=== PATIENT | male | born 1960 | race Hispanic/Latino ===

== ENCOUNTER 2020-10-13 18:44 | Inpatient (IN) | payer MEDICARE, OTHER ==
[~2020-10-13] VITALS: Ht 165.1 cm; Wt 102.6 kg
[~2020-10-13 18:44] MED LIST: AMIODARONE 150MG VIAL IV ONE; CACL 1GM SYG IVP ONE; EPINEPHRINE 1MG SYG 10ML IVP ONE; LIDOCAINE PF 100MG/5ML (2%) SYRINGE 5ML IVP ONE; MAGNESIUM SULFATE 1 GM/2 ML VIAL IM ONE; SODIUM BICARB 8.4% 50ML SYRINGE IVP ONE
[2020-10-13 18:53] VITALS: BP 151/91
[2020-10-13 19:04] LABS: ABG BASE EXCESS -0.8 mmol/L (-2.0-3.0); ABG HCO3 20.1 mmol/L (21.0-28.0); ABG OXYGEN SATURATION 75.3 % (95.0-99.0); ABG PCO2 25 mmHg (35-48)
[2020-10-13 19:09] LABS: HEMATOCRIT 43.7 % (42-54); LYMPHOCYTES % (AUTO) 9.9 % (21.0-51.0); MEAN CORPUSCULAR HEMOGLOBIN 30.4 pg (27.0-33.0); MEAN CORPUSCULAR VOLUME 86.9 fL (79-99); MONOCYTES % (AUTO) 5.5 % (3.0-13.0); NEUTROPHILS % (AUTO) 84.1 % (40.0-77.0); PLATELET COUNT (AUTO) 88 K/uL (130-400); RED BLOOD CELL COUNT(AUTO) 5.03 MIL/uL (4.50-6.20); RED CELL DISTRIBUTION WIDTH 12.3 % (11.0-15.5); WHITE BLOOD COUNT (AUTO) 7.7 K/uL (4.8-10.8)
[2020-10-13 19:20] VITALS: BP 113/68
[2020-10-13 19:24] LABS: CREATININE 1.4 mg/dL (0.5-1.5); POTASSIUM 3.6 mmol/L (3.5-5.1)
[2020-10-13 19:29] LABS: ALBUMIN 3.1 g/dL (3.5-5.0); BILIRUBIN,TOTAL 1.2 mg/dL (0.2-1.0); TOTAL PROTEIN, SERUM 7.4 g/dL (6.0-8.3)
[2020-10-13 19:33] LABS: B-TYPE NATRIURETIC PEPTIDE 56 pg/mL (0-100)
[2020-10-13] MEDS ORDERED: ALBUTEROL INHALER 90MCG/INH IH PRN (20:30)
[2020-10-13] MEDS ORDERED: NITROGLYCERIN 1GM OINT 1 INCH/1GM TD ONE (20:30)
[2020-10-13] MEDS ORDERED: ACETAMINOPHEN 500 MG TABLET PO ONE (20:30)
[2020-10-13] MEDS ORDERED: ASPIRIN 325MG TAB PO ONE (20:30)
[2020-10-13] MEDS: NITROGLYCERIN 1GM OINT 1 INCH/1GM TD SCH (21:00)
[2020-10-13] MEDS ORDERED: DEXAMETHASONE SOD PHOSPHATE 4 MG/ML 1ML VIAL IVP SCH (21:00)
[2020-10-13] MEDS ORDERED: 0.9%NACL 1000ML 500 ML IV SCH (21:00)
[2020-10-13] MEDS ORDERED: ERGOCALCIFEROL (VITAMIN D2) 50,000 UNIT CAPSULE PO ONE (21:00)
[2020-10-13] MEDS ORDERED: PHARMACY COMMUNICATION**REMDESIVIR MISC SCH (21:00)
[2020-10-13] MEDS: ZOSYN 3.375GM+NS 50ML 50 ML IV SCH (21:55)
[2020-10-13] MEDS: INSULIN HUMULIN R 100 UNIT/ML 3ML SQ SCH (22:01)
[2020-10-13 22:20] VITALS: BP 109/69
[2020-10-14] VITALS (11 sets, daily range): BP systolic 109–166; BP diastolic 67–95
[2020-10-14] MEDS: ALBUTEROL INHALER 90MCG/INH IH SCH ×4 (02:56→20:28)
[2020-10-14] MEDS ORDERED: ALBUTEROL INHALER 90MCG/INH IH ONE (02:57)
[2020-10-14 05:27] LABS: ABG BASE EXCESS -1.4 mmol/L (-2.0-3.0); ABG OXYGEN SATURATION 93.4 % (95.0-99.0); ABG PCO2 29 mmHg (35-48)
[2020-10-14] MEDS: ZOSYN 3.375GM+NS 50ML 50 ML IV SCH ×3 (05:36→20:14)
[2020-10-14] MEDS: NITROGLYCERIN 1GM OINT 1 INCH/1GM TD SCH ×3 (05:36→20:13)
[2020-10-14 06:18] LABS: BASOPHILS % (AUTO) 0.1 % (0.0-5.0); HEMATOCRIT 42.8 % (42-54); LYMPHOCYTES % (AUTO) 8.4 % (21.0-51.0); MEAN CORPUSCULAR HGB CONC 33.4 g/dL (32.0-36.0); MEAN CORPUSCULAR VOLUME 89.9 fL (79-99); MONOCYTES % (AUTO) 4.3 % (3.0-13.0); NEUTROPHILS % (AUTO) 86.6 % (40.0-77.0); PLATELET COUNT (AUTO) 80 K/uL (130-400); RED BLOOD CELL COUNT(AUTO) 4.76 MIL/uL (4.50-6.20); RED CELL DISTRIBUTION WIDTH 12.4 % (11.0-15.5)
[2020-10-14] MEDS ORDERED: COMPOUND IV REFRIGERATED 1 EACH IVSOLN MISC PRN (06:30)
[2020-10-14 06:40] LABS: ALBUMIN 2.8 g/dL (3.5-5.0); BILIRUBIN,TOTAL 1.1 mg/dL (0.2-1.0); CREATININE 1.4 mg/dL (0.5-1.5); CRP QUANTITATIVE 145.6 mg/L (0.00-9.0); POTASSIUM 4.2 mmol/L (3.5-5.1); TOTAL PROTEIN, SERUM 6.8 g/dL (6.0-8.3)
[2020-10-14] MEDS ORDERED: REMDESIVIR (EUA) 520 200 MG in 0.9% NACL 250ML 250 ML IV SCH (07:00)
[2020-10-14] MEDS: INSULIN HUMULIN R 100 UNIT/ML 3ML SQ SCH ×4 (07:30→21:00)
[2020-10-14] MEDS ORDERED: FAMOTIDINE 20MG TAB PO SCH (09:00)
[2020-10-14] MEDS ORDERED: ENOXAPARIN SODIUM 40 MG/0.4 ML SYRINGE SQ SCH (09:00)
[2020-10-14] MEDS: ASCORBIC ACID 500 MG TAB PO SCH (09:35)
[2020-10-14] MEDS: ZINC SULFATE 220 CAPSULE PO SCH (09:35)
[2020-10-14] MEDS: ASPIRIN 81 MG EC TAB PO SCH (09:35)
[2020-10-14] MEDS: ENOXAPARIN SODIUM 40 MG/0.4 ML SYRINGE SQ SCH ×2 (09:36→20:14)
[2020-10-14] MEDS ORDERED: ATOR40TA71 PO (09:38)
[2020-10-14] MEDS ORDERED: CLOP75TA32 PO (09:39)
[2020-10-14] MEDS ORDERED: LOSA100T58 PO (09:40)
[2020-10-14] MEDS ORDERED: METO25TA6 PO (09:41)
[2020-10-14] MEDS: SOLU-MEDROL 40MG VIAL IVP SCH ×2 (12:31→20:12)
[2020-10-14] MEDS: BARICITINIB (EUA) 2 MG TABLET PO SCH (20:16)
[2020-10-14] MEDS ORDERED: DEXAMETHASONE SOD PHOSPHATE 4 MG/ML 1ML VIAL IVP SCH (21:00)
[2020-10-15 04:26] LABS: ABG BASE EXCESS -0.5 mmol/L (-2.0-3.0); ABG HCO3 22.5 mmol/L (21.0-28.0); ABG PCO2 33 mmHg (35-48)
[2020-10-15 05:41] VITALS: BP 156/93
[2020-10-15] MEDS: ZOSYN 3.375GM+NS 50ML 50 ML IV SCH (05:45)
[2020-10-15] MEDS: SOLU-MEDROL 40MG VIAL IVP SCH ×3 (05:46→18:09)
[2020-10-15] MEDS: NITROGLYCERIN 1GM OINT 1 INCH/1GM TD SCH ×3 (05:46→20:49)
[2020-10-15 06:02] LABS: HEMATOCRIT 39.8 % (42-54); LYMPHOCYTES % (AUTO) 6.5 % (21.0-51.0); MEAN CORPUSCULAR HEMOGLOBIN 30.1 pg (27.0-33.0); MEAN CORPUSCULAR HGB CONC 34.4 g/dL (32.0-36.0); MEAN CORPUSCULAR VOLUME 87.5 fL (79-99); MONOCYTES % (AUTO) 4.1 % (3.0-13.0); NEUTROPHILS % (AUTO) 88.3 % (40.0-77.0); PLATELET COUNT (AUTO) 107 K/uL (130-400); RED BLOOD CELL COUNT(AUTO) 4.55 MIL/uL (4.50-6.20); RED CELL DISTRIBUTION WIDTH 12.3 % (11.0-15.5); WHITE BLOOD COUNT (AUTO) 9.3 K/uL (4.8-10.8)
[2020-10-15] MEDS: INSULIN HUMULIN R 100 UNIT/ML 3ML SQ SCH ×4 (06:03→21:05)
[2020-10-15 06:10] LABS: HEMOGLOBIN A1C 6.6 % (4.0-6.0)
[2020-10-15 06:25] LABS: ALBUMIN 2.6 g/dL (3.5-5.0); BILIRUBIN,TOTAL 0.9 mg/dL (0.2-1.0); CREATININE 1.1 mg/dL (0.5-1.5); CRP QUANTITATIVE 101.4 mg/L (0.00-9.0); POTASSIUM 3.8 mmol/L (3.5-5.1); TOTAL PROTEIN, SERUM 6.5 g/dL (6.0-8.3)
[2020-10-15 08:00] VITALS: BP 144/88
[2020-10-15] MEDS: ALBUTEROL INHALER 90MCG/INH IH SCH ×4 (08:30→20:49)
[2020-10-15] MEDS: PANTOPRAZOLE 40 MG TAB DR PO SCH (08:45)
[2020-10-15] MEDS: ENOXAPARIN SODIUM 40 MG/0.4 ML SYRINGE SQ SCH ×2 (08:45→20:49)
[2020-10-15] MEDS: ZINC SULFATE 220 CAPSULE PO SCH (08:45)
[2020-10-15] MEDS: BARICITINIB (EUA) 2 MG TABLET PO SCH (08:45)
[2020-10-15] MEDS: ASPIRIN 81 MG EC TAB PO SCH (08:45)
[2020-10-15] MEDS: ASCORBIC ACID 500 MG TAB PO SCH (08:45)
[2020-10-15] MEDS: CLOPIDOGREL 75MG TAB PO SCH (08:46)
[2020-10-15] MEDS ORDERED: LOSARTAN 50 MG TABLET PO SCH (10:30)
[2020-10-15] MEDS: LOSARTAN 50 MG TABLET PO SCH (11:22)
[2020-10-15 12:00] VITALS: BP 133/71
[2020-10-15] MEDS: REMDESIVIR (EUA) 520 100 MG in 0.9% NACL 250ML 250 ML IV SCH (13:25)
[2020-10-15 16:00] VITALS: BP 109/74
[2020-10-15 20:00] VITALS: BP 111/51
[2020-10-15 20:16] LABS: BASOPHILS % (AUTO) 0.2 % (0.0-5.0); EOSINOPHILS % (AUTO) 0.2 % (0.0-8.0); HEMATOCRIT 42.3 % (42-54); LYMPHOCYTES % (AUTO) 6.2 % (21.0-51.0); MEAN CORPUSCULAR HEMOGLOBIN 30.7 pg (27.0-33.0); MEAN CORPUSCULAR VOLUME 90.2 fL (79-99); MONOCYTES % (AUTO) 5.3 % (3.0-13.0); NEUTROPHILS % (AUTO) 87.2 % (40.0-77.0); NUCLEATED RED BLOOD CELLS 0.2 % (0.0-0.19); PLATELET COUNT (AUTO) 159 K/uL (130-400); RED BLOOD CELL COUNT(AUTO) 4.69 MIL/uL (4.50-6.20); RED CELL DISTRIBUTION WIDTH 12.4 % (11.0-15.5); WHITE BLOOD COUNT (AUTO) 12.7 K/uL (4.8-10.8)
[2020-10-15] MEDS: METOPROLOL TARTRATE 25 MG TAB PO SCH (20:48)
[2020-10-16] VITALS (7 sets, daily range): BP systolic 113–155; BP diastolic 48–79
[2020-10-16] MEDS: ALBUTEROL INHALER 90MCG/INH IH SCH ×4 (02:22→21:06)
[2020-10-16] MEDS: NITROGLYCERIN 1GM OINT 1 INCH/1GM TD SCH ×3 (04:57→21:05)
[2020-10-16 05:28] LABS: BASOPHILS % (AUTO) 0.1 % (0.0-5.0); EOSINOPHILS % (AUTO) 0.1 % (0.0-8.0); HEMATOCRIT 42.6 % (42-54); LYMPHOCYTES % (AUTO) 5.2 % (21.0-51.0); MEAN CORPUSCULAR HGB CONC 33.6 g/dL (32.0-36.0); MEAN CORPUSCULAR VOLUME 89.5 fL (79-99); MONOCYTES % (AUTO) 5.9 % (3.0-13.0); NEUTROPHILS % (AUTO) 87.8 % (40.0-77.0); NUCLEATED RED BLOOD CELLS 0.1 % (0.0-0.19); PLATELET COUNT (AUTO) 186 K/uL (130-400); RED BLOOD CELL COUNT(AUTO) 4.76 MIL/uL (4.50-6.20); RED CELL DISTRIBUTION WIDTH 12.4 % (11.0-15.5); WHITE BLOOD COUNT (AUTO) 13.8 K/uL (4.8-10.8)
[2020-10-16] MEDS: REMDESIVIR LABS MISC SCH (06:00)
[2020-10-16 06:02] LABS: ALBUMIN 2.9 g/dL (3.5-5.0); BILIRUBIN,TOTAL 1.2 mg/dL (0.2-1.0); CREATININE 1.3 mg/dL (0.5-1.5); CRP QUANTITATIVE 54.4 mg/L (0.00-9.0); POTASSIUM 3.5 mmol/L (3.5-5.1); TOTAL PROTEIN, SERUM 7.2 g/dL (6.0-8.3)
[2020-10-16] MEDS: INSULIN HUMULIN R 100 UNIT/ML 3ML SQ SCH ×4 (06:37→21:08)
[2020-10-16] MEDS ORDERED: DEXAMETHASONE SOD PHOSPHATE 4 MG/ML 1ML VIAL IVP SCH (09:00)
[2020-10-16] MEDS: ASCORBIC ACID 500 MG TAB PO SCH (09:04)
[2020-10-16] MEDS: PANTOPRAZOLE 40 MG TAB DR PO SCH (09:04)
[2020-10-16] MEDS: ENOXAPARIN SODIUM 40 MG/0.4 ML SYRINGE SQ SCH (09:05)
[2020-10-16] MEDS: CLOPIDOGREL 75MG TAB PO SCH (09:05)
[2020-10-16] MEDS: LOSARTAN 50 MG TABLET PO SCH (09:05)
[2020-10-16] MEDS: ASPIRIN 81 MG EC TAB PO SCH (09:05)
[2020-10-16] MEDS: METOPROLOL TARTRATE 25 MG TAB PO SCH ×2 (09:05→21:05)
[2020-10-16] MEDS: ZINC SULFATE 220 CAPSULE PO SCH (09:05)
[2020-10-16] MEDS: BARICITINIB (EUA) 2 MG TABLET PO SCH (09:06)
[2020-10-16] MEDS: REMDESIVIR (EUA) 520 100 MG in 0.9% NACL 250ML 250 ML IV SCH (13:55)
[2020-10-16] MEDS ORDERED: LORAZEPAM 0.5 MG TABLET PO STA (17:33)
[2020-10-16] MEDS: DEXAMETHASONE SOD PHOSPHATE 4 MG/ML 1ML VIAL IVP SCH ×2 (17:42→21:05)
[2020-10-16 20:49] LABS: BASOPHILS % (AUTO) 0.3 % (0.0-5.0); EOSINOPHILS % (AUTO) 0.4 % (0.0-8.0); HEMATOCRIT 41.2 % (42-54); LYMPHOCYTES % (AUTO) 6.3 % (21.0-51.0); MEAN CORPUSCULAR HEMOGLOBIN 30.1 pg (27.0-33.0); MEAN CORPUSCULAR HGB CONC 33.5 g/dL (32.0-36.0); MONOCYTES % (AUTO) 5.8 % (3.0-13.0); NEUTROPHILS % (AUTO) 85.9 % (40.0-77.0); PLATELET COUNT (AUTO) 186 K/uL (130-400); RED BLOOD CELL COUNT(AUTO) 4.58 MIL/uL (4.50-6.20); RED CELL DISTRIBUTION WIDTH 12.5 % (11.0-15.5); WHITE BLOOD COUNT (AUTO) 12.5 K/uL (4.8-10.8)
[2020-10-16] MEDS: ENOXAPARIN SODIUM 60 MG/0.6 ML SQ SCH (21:07)
[2020-10-17] MEDS: ALBUTEROL INHALER 90MCG/INH IH SCH ×4 (01:29→20:31)
[2020-10-17 01:44] LABS: ABG BASE EXCESS 0.9 mmol/L (-2.0-3.0); ABG HCO3 20.2 mmol/L (21.0-28.0); ABG OXYGEN SATURATION 92.9 % (95.0-99.0); ABG PCO2 21 mmHg (35-48)
[2020-10-17 03:46] VITALS: BP 141/61
[2020-10-17] MEDS: NITROGLYCERIN 1GM OINT 1 INCH/1GM TD SCH ×3 (04:57→20:30)
[2020-10-17 05:03] LABS: BASOPHILS % (AUTO) 0.2 % (0.0-5.0); EOSINOPHILS % (AUTO) 0.1 % (0.0-8.0); HEMATOCRIT 41.7 % (42-54); LYMPHOCYTES % (AUTO) 5.1 % (21.0-51.0); MEAN CORPUSCULAR HEMOGLOBIN 30.3 pg (27.0-33.0); MEAN CORPUSCULAR HGB CONC 34.1 g/dL (32.0-36.0); MEAN CORPUSCULAR VOLUME 89.1 fL (79-99); NEUTROPHILS % (AUTO) 86.5 % (40.0-77.0); NUCLEATED RED BLOOD CELLS 0.1 % (0.0-0.19); PLATELET COUNT (AUTO) 219 K/uL (130-400); RED BLOOD CELL COUNT(AUTO) 4.68 MIL/uL (4.50-6.20); RED CELL DISTRIBUTION WIDTH 12.4 % (11.0-15.5); WHITE BLOOD COUNT (AUTO) 15.3 K/uL (4.8-10.8)
[2020-10-17 05:20] LABS: ALBUMIN 3.1 g/dL (3.5-5.0); BILIRUBIN,TOTAL 1.4 mg/dL (0.2-1.0); CREATININE 1.2 mg/dL (0.5-1.5); CRP QUANTITATIVE 34.9 mg/L (0.00-9.0); POTASSIUM 3.6 mmol/L (3.5-5.1); TOTAL PROTEIN, SERUM 7.1 g/dL (6.0-8.3)
[2020-10-17] MEDS: REMDESIVIR LABS MISC SCH (05:47)
[2020-10-17] MEDS: INSULIN HUMULIN R 100 UNIT/ML 3ML SQ SCH ×4 (06:24→20:31)
[2020-10-17 08:22] VITALS: BP 153/94
[2020-10-17] MEDS: DEXAMETHASONE SOD PHOSPHATE 4 MG/ML 1ML VIAL IVP SCH ×2 (08:35→20:32)
[2020-10-17] MEDS: ZINC SULFATE 220 CAPSULE PO SCH (09:17)
[2020-10-17] MEDS: BARICITINIB (EUA) 2 MG TABLET PO SCH (09:17)
[2020-10-17] MEDS: ENOXAPARIN SODIUM 60 MG/0.6 ML SQ SCH ×2 (09:17→20:32)
[2020-10-17] MEDS: PANTOPRAZOLE 40 MG TAB DR PO SCH (09:18)
[2020-10-17] MEDS: LOSARTAN 50 MG TABLET PO SCH (09:18)
[2020-10-17] MEDS: CLOPIDOGREL 75MG TAB PO SCH (09:18)
[2020-10-17] MEDS: METOPROLOL TARTRATE 25 MG TAB PO SCH ×2 (09:18→20:32)
[2020-10-17] MEDS: ASPIRIN 81 MG EC TAB PO SCH (09:18)
[2020-10-17] MEDS: ASCORBIC ACID 500 MG TAB PO SCH (09:18)
[2020-10-17 11:46] VITALS: BP 122/50
[2020-10-17] MEDS: REMDESIVIR (EUA) 520 100 MG in 0.9% NACL 250ML 250 ML IV SCH (13:45)
[2020-10-17 16:01] VITALS: BP 149/71
[2020-10-17 19:20] VITALS: BP 130/79
[2020-10-17 23:31] VITALS: BP 161/86
[2020-10-18] MEDS: ALBUTEROL INHALER 90MCG/INH IH SCH ×4 (00:34→20:13)
[2020-10-18 03:40] VITALS: BP 138/96
[2020-10-18] MEDS: NITROGLYCERIN 1GM OINT 1 INCH/1GM TD SCH ×3 (04:12→20:12)
[2020-10-18 05:00] LABS: BASOPHILS % (AUTO) 0.3 % (0.0-5.0); HEMATOCRIT 43.7 % (42-54); LYMPHOCYTES % (AUTO) 3.9 % (21.0-51.0); MEAN CORPUSCULAR HEMOGLOBIN 29.9 pg (27.0-33.0); MEAN CORPUSCULAR HGB CONC 33.4 g/dL (32.0-36.0); MEAN CORPUSCULAR VOLUME 89.4 fL (79-99); MONOCYTES % (AUTO) 3.2 % (3.0-13.0); NUCLEATED RED BLOOD CELLS 0.3 % (0.0-0.19); PLATELET COUNT (AUTO) 237 K/uL (130-400); RED BLOOD CELL COUNT(AUTO) 4.89 MIL/uL (4.50-6.20); RED CELL DISTRIBUTION WIDTH 12.4 % (11.0-15.5); WHITE BLOOD COUNT (AUTO) 15.7 K/uL (4.8-10.8)
[2020-10-18 05:29] LABS: ALBUMIN 2.9 g/dL (3.5-5.0); BILIRUBIN,TOTAL 1.4 mg/dL (0.2-1.0); CREATININE 1.1 mg/dL (0.5-1.5); CRP QUANTITATIVE 34.6 mg/L (0.00-9.0); POTASSIUM 3.6 mmol/L (3.5-5.1); TOTAL PROTEIN, SERUM 6.9 g/dL (6.0-8.3)
[2020-10-18] MEDS: REMDESIVIR LABS MISC SCH (05:48)
[2020-10-18] MEDS: INSULIN HUMULIN R 100 UNIT/ML 3ML SQ SCH ×4 (06:23→20:20)
[2020-10-18] MEDS: CLOPIDOGREL 75MG TAB PO SCH (07:57)
[2020-10-18] MEDS: ASPIRIN 81 MG EC TAB PO SCH (07:57)
[2020-10-18] MEDS: LOSARTAN 50 MG TABLET PO SCH (07:57)
[2020-10-18] MEDS: DEXAMETHASONE SOD PHOSPHATE 4 MG/ML 1ML VIAL IVP SCH ×2 (07:57→20:12)
[2020-10-18] MEDS: PANTOPRAZOLE 40 MG TAB DR PO SCH (07:57)
[2020-10-18] MEDS: ENOXAPARIN SODIUM 60 MG/0.6 ML SQ SCH ×2 (07:58→20:13)
[2020-10-18] MEDS: ZINC SULFATE 220 CAPSULE PO SCH (07:58)
[2020-10-18] MEDS: ASCORBIC ACID 500 MG TAB PO SCH (07:58)
[2020-10-18] MEDS: METOPROLOL TARTRATE 25 MG TAB PO SCH ×2 (07:58→20:14)
[2020-10-18] MEDS: BARICITINIB (EUA) 2 MG TABLET PO SCH (08:25)
[2020-10-18 09:01] VITALS: BP 131/80
[2020-10-18 11:29] VITALS: BP 152/67
[2020-10-18] MEDS: REMDESIVIR (EUA) 520 100 MG in 0.9% NACL 250ML 250 ML IV SCH (14:04)
[2020-10-18 20:00] VITALS: BP 128/67
[2020-10-18 23:48] VITALS: BP 124/72
[2020-10-19] MEDS: ALBUTEROL INHALER 90MCG/INH IH SCH ×4 (00:48→18:34)
[2020-10-19 03:53] VITALS: BP 151/95
[2020-10-19 03:55] VITALS: BP 155/59
[2020-10-19 04:59] LABS: BASOPHILS % (AUTO) 0.3 % (0.0-5.0); HEMATOCRIT 45.2 % (42-54); LYMPHOCYTES % (AUTO) 3.7 % (21.0-51.0); MEAN CORPUSCULAR HEMOGLOBIN 30.1 pg (27.0-33.0); MEAN CORPUSCULAR HGB CONC 33.8 g/dL (32.0-36.0); MEAN CORPUSCULAR VOLUME 88.8 fL (79-99); MONOCYTES % (AUTO) 3.1 % (3.0-13.0); NUCLEATED RED BLOOD CELLS 0.3 % (0.0-0.19); PLATELET COUNT (AUTO) 305 K/uL (130-400); RED BLOOD CELL COUNT(AUTO) 5.09 MIL/uL (4.50-6.20); RED CELL DISTRIBUTION WIDTH 12.5 % (11.0-15.5); WHITE BLOOD COUNT (AUTO) 17.6 K/uL (4.8-10.8)
[2020-10-19] MEDS: NITROGLYCERIN 1GM OINT 1 INCH/1GM TD SCH ×2 (05:03→13:30)
[2020-10-19 05:42] LABS: ALBUMIN 2.9 g/dL (3.5-5.0); BILIRUBIN,TOTAL 1.4 mg/dL (0.2-1.0); CREATININE 1.2 mg/dL (0.5-1.5); CRP QUANTITATIVE 74.6 mg/L (0.00-9.0); POTASSIUM 3.9 mmol/L (3.5-5.1); TOTAL PROTEIN, SERUM 7.2 g/dL (6.0-8.3)
[2020-10-19] MEDS: INSULIN HUMULIN R 100 UNIT/ML 3ML SQ SCH ×4 (06:22→20:59)
[2020-10-19 08:32] VITALS: BP 143/84
[2020-10-19] MEDS: DEXAMETHASONE SOD PHOSPHATE 4 MG/ML 1ML VIAL IVP SCH (09:49)
[2020-10-19] MEDS: METOPROLOL TARTRATE 25 MG TAB PO SCH ×2 (09:49→20:51)
[2020-10-19] MEDS: PANTOPRAZOLE 40 MG TAB DR PO SCH (09:49)
[2020-10-19] MEDS: ZINC SULFATE 220 CAPSULE PO SCH (09:50)
[2020-10-19] MEDS: ASCORBIC ACID 500 MG TAB PO SCH (09:50)
[2020-10-19] MEDS: BARICITINIB (EUA) 2 MG TABLET PO SCH (09:50)
[2020-10-19] MEDS: CLOPIDOGREL 75MG TAB PO SCH (09:50)
[2020-10-19] MEDS: ASPIRIN 81 MG EC TAB PO SCH (09:50)
[2020-10-19] MEDS: LOSARTAN 50 MG TABLET PO SCH (09:50)
[2020-10-19] MEDS: ENOXAPARIN SODIUM 60 MG/0.6 ML SQ SCH ×2 (09:50→20:52)
[2020-10-19] MEDS ORDERED: BUSPIRONE HCL 5 MG TABLET PO ONE (10:59)
[2020-10-19] MEDS ORDERED: BUSPIRONE HCL 5 MG TABLET PO SCH (11:00)
[2020-10-19 11:10] VITALS: BP 138/81
[2020-10-19] MEDS ORDERED: MAGNESIUM 2GM PREMIX 50ML 50 ML IV PRN (11:30)
[2020-10-19 15:49] VITALS: BP 148/86
[2020-10-19 19:49] VITALS: BP 118/91
[2020-10-19] MEDS: SOLU-MEDROL 40MG VIAL IVP SCH (20:50)
[2020-10-19] MEDS: BUSPIRONE HCL 5 MG TABLET PO SCH (20:51)
[2020-10-20] VITALS: BP 135/86
[2020-10-20] MEDS: ALBUTEROL INHALER 90MCG/INH IH SCH ×4 (01:24→18:52)
[2020-10-20 04:00] VITALS: BP 131/80
[2020-10-20 05:32] LABS: BASOPHILS % (AUTO) 0.3 % (0.0-5.0); HEMATOCRIT 45.5 % (42-54); LYMPHOCYTES % (AUTO) 2.4 % (21.0-51.0); MEAN CORPUSCULAR HEMOGLOBIN 30.2 pg (27.0-33.0); MEAN CORPUSCULAR HGB CONC 33.8 g/dL (32.0-36.0); MEAN CORPUSCULAR VOLUME 89.2 fL (79-99); MONOCYTES % (AUTO) 2.7 % (3.0-13.0); NEUTROPHILS % (AUTO) 91.4 % (40.0-77.0); NUCLEATED RED BLOOD CELLS 0.1 % (0.0-0.19); PLATELET COUNT (AUTO) 304 K/uL (130-400); RED CELL DISTRIBUTION WIDTH 12.5 % (11.0-15.5); WHITE BLOOD COUNT (AUTO) 16.5 K/uL (4.8-10.8)
[2020-10-20 05:38] LABS: CREATININE 1.1 mg/dL (0.5-1.5); CRP QUANTITATIVE 83.1 mg/L (0.00-9.0); POTASSIUM 4.3 mmol/L (3.5-5.1)
[2020-10-20] MEDS: INSULIN HUMULIN R 100 UNIT/ML 3ML SQ SCH ×4 (06:17→21:05)
[2020-10-20 07:51] VITALS: BP 129/75
[2020-10-20] MEDS: LOSARTAN 50 MG TABLET PO SCH (09:20)
[2020-10-20] MEDS: BARICITINIB (EUA) 2 MG TABLET PO SCH (09:20)
[2020-10-20] MEDS: ASPIRIN 81 MG EC TAB PO SCH (09:20)
[2020-10-20] MEDS: ASCORBIC ACID 500 MG TAB PO SCH (09:20)
[2020-10-20] MEDS: CLOPIDOGREL 75MG TAB PO SCH (09:20)
[2020-10-20] MEDS: METOPROLOL TARTRATE 25 MG TAB PO SCH ×2 (09:21→20:55)
[2020-10-20] MEDS: PANTOPRAZOLE 40 MG TAB DR PO SCH (09:21)
[2020-10-20] MEDS: SOLU-MEDROL 40MG VIAL IVP SCH ×2 (09:21→20:55)
[2020-10-20] MEDS: BUSPIRONE HCL 5 MG TABLET PO SCH ×2 (09:21→20:55)
[2020-10-20] MEDS: ZINC SULFATE 220 CAPSULE PO SCH (09:21)
[2020-10-20] MEDS: ENOXAPARIN SODIUM 60 MG/0.6 ML SQ SCH ×2 (09:22→20:56)
[2020-10-20 11:32] VITALS: BP 149/96
[2020-10-20 16:14] VITALS: BP 148/101
[2020-10-20 19:40] VITALS: BP 142/75
[2020-10-21] VITALS (7 sets, daily range): BP systolic 119–152; BP diastolic 74–98
[2020-10-21] MEDS: GUAIFENESIN-DM 200/20 MG 10 ML PO PRN ×2 (00:55→21:06)
[2020-10-21] MEDS: ALBUTEROL INHALER 90MCG/INH IH SCH ×4 (01:01→19:54)
[2020-10-21 06:08] LABS: BASOPHILS % (AUTO) 0.2 % (0.0-5.0); HEMATOCRIT 47.1 % (42-54); LYMPHOCYTES % (AUTO) 1.5 % (21.0-51.0); MEAN CORPUSCULAR HEMOGLOBIN 29.8 pg (27.0-33.0); MEAN CORPUSCULAR HGB CONC 33.5 g/dL (32.0-36.0); MEAN CORPUSCULAR VOLUME 88.9 fL (79-99); MONOCYTES % (AUTO) 2.8 % (3.0-13.0); NEUTROPHILS % (AUTO) 93.1 % (40.0-77.0); PLATELET COUNT (AUTO) 334 K/uL (130-400); RED CELL DISTRIBUTION WIDTH 12.5 % (11.0-15.5); WHITE BLOOD COUNT (AUTO) 18.8 K/uL (4.8-10.8)
[2020-10-21 06:17] LABS: CRP QUANTITATIVE 49.3 mg/L (0.00-9.0); POTASSIUM 4.4 mmol/L (3.5-5.1)
[2020-10-21] MEDS: INSULIN HUMULIN R 100 UNIT/ML 3ML SQ SCH ×4 (06:45→20:27)
[2020-10-21] MEDS: SOLU-MEDROL 40MG VIAL IVP SCH ×2 (08:26→20:49)
[2020-10-21] MEDS: CLOPIDOGREL 75MG TAB PO SCH (08:26)
[2020-10-21] MEDS: LOSARTAN 50 MG TABLET PO SCH (08:26)
[2020-10-21] MEDS: ASPIRIN 81 MG EC TAB PO SCH (08:26)
[2020-10-21] MEDS: ASCORBIC ACID 500 MG TAB PO SCH (08:26)
[2020-10-21] MEDS: PANTOPRAZOLE 40 MG TAB DR PO SCH (08:26)
[2020-10-21] MEDS: ZINC SULFATE 220 CAPSULE PO SCH (08:26)
[2020-10-21] MEDS: BUSPIRONE HCL 5 MG TABLET PO SCH ×2 (08:26→20:49)
[2020-10-21] MEDS: ENOXAPARIN SODIUM 60 MG/0.6 ML SQ SCH ×2 (08:27→20:51)
[2020-10-21] MEDS: BARICITINIB (EUA) 2 MG TABLET PO SCH (08:27)
[2020-10-21] MEDS: METOPROLOL TARTRATE 25 MG TAB PO SCH ×2 (08:27→20:49)
[2020-10-22] MEDS: ALBUTEROL INHALER 90MCG/INH IH SCH ×4 (02:39→19:30)
[2020-10-22 04:08] VITALS: BP 153/97
[2020-10-22] MEDS: METOPROLOL TARTRATE 25 MG TAB PO SCH ×2 (06:03→20:25)
[2020-10-22] MEDS: INSULIN HUMULIN R 100 UNIT/ML 3ML SQ SCH ×4 (06:03→20:51)
[2020-10-22 08:07] VITALS: BP 149/92
[2020-10-22 09:22] LABS: BASOPHILS % (AUTO) 0.2 % (0.0-5.0); LYMPHOCYTES % (AUTO) 1.3 % (21.0-51.0); MEAN CORPUSCULAR HEMOGLOBIN 30.4 pg (27.0-33.0); MEAN CORPUSCULAR HGB CONC 32.9 g/dL (32.0-36.0); MEAN CORPUSCULAR VOLUME 92.5 fL (79-99); MONOCYTES % (AUTO) 1.9 % (3.0-13.0); NEUTROPHILS % (AUTO) 94.7 % (40.0-77.0); PLATELET COUNT (AUTO) 315 K/uL (130-400); RED CELL DISTRIBUTION WIDTH 12.6 % (11.0-15.5); WHITE BLOOD COUNT (AUTO) 17.9 K/uL (4.8-10.8)
[2020-10-22 09:34] LABS: ALBUMIN 2.6 g/dL (3.5-5.0); BILIRUBIN,TOTAL 1.2 mg/dL (0.2-1.0); CREATININE 1.1 mg/dL (0.5-1.5); POTASSIUM 4.8 mmol/L (3.5-5.1); TOTAL PROTEIN, SERUM 6.5 g/dL (6.0-8.3)
[2020-10-22 10:04] LABS: ABG BASE EXCESS -2.7 mmol/L (-2.0-3.0); ABG HCO3 20.2 mmol/L (21.0-28.0); ABG OXYGEN SATURATION 95.3 % (95.0-99.0); ABG PCO2 30 mmHg (35-48)
[2020-10-22] MEDS: ASPIRIN 81 MG EC TAB PO SCH (10:57)
[2020-10-22] MEDS: SOLU-MEDROL 40MG VIAL IVP SCH ×2 (10:57→20:25)
[2020-10-22] MEDS: ASCORBIC ACID 500 MG TAB PO SCH (10:58)
[2020-10-22] MEDS: PANTOPRAZOLE 40 MG TAB DR PO SCH (10:58)
[2020-10-22] MEDS: BARICITINIB (EUA) 2 MG TABLET PO SCH (10:58)
[2020-10-22] MEDS: LOSARTAN 50 MG TABLET PO SCH (10:58)
[2020-10-22] MEDS: BUSPIRONE HCL 5 MG TABLET PO SCH ×2 (10:58→20:25)
[2020-10-22] MEDS: ZINC SULFATE 220 CAPSULE PO SCH (11:02)
[2020-10-22 11:57] VITALS: BP 147/87
[2020-10-22] MEDS: CLOPIDOGREL 75MG TAB PO SCH (12:03)
[2020-10-22] MEDS: ENOXAPARIN SODIUM 60 MG/0.6 ML SQ SCH ×2 (12:04→20:47)
[2020-10-22 16:29] VITALS: BP 139/81
[2020-10-22 20:04] VITALS: BP 121/78
[2020-10-22 23:00] VITALS: BP 140/81
[2020-10-23] MEDS: ALBUTEROL INHALER 90MCG/INH IH SCH ×4 (01:30→17:31)
[2020-10-23 03:00] VITALS: BP 131/76
[2020-10-23 04:31] LABS: BASOPHILS % (AUTO) 0.3 % (0.0-5.0); LYMPHOCYTES % (AUTO) 1.3 % (21.0-51.0); MEAN CORPUSCULAR HEMOGLOBIN 30.3 pg (27.0-33.0); MEAN CORPUSCULAR HGB CONC 32.8 g/dL (32.0-36.0); MEAN CORPUSCULAR VOLUME 92.3 fL (79-99); MONOCYTES % (AUTO) 1.4 % (3.0-13.0); NEUTROPHILS % (AUTO) 95.3 % (40.0-77.0); PLATELET COUNT (AUTO) 281 K/uL (130-400); RED BLOOD CELL COUNT(AUTO) 5.42 MIL/uL (4.50-6.20); RED CELL DISTRIBUTION WIDTH 12.6 % (11.0-15.5)
[2020-10-23 04:46] LABS: ALBUMIN 2.4 g/dL (3.5-5.0); BILIRUBIN,TOTAL 1.2 mg/dL (0.2-1.0); CREATININE 1.2 mg/dL (0.5-1.5); CRP QUANTITATIVE 31.3 mg/L (0.00-9.0); POTASSIUM 5.1 mmol/L (3.5-5.1); TOTAL PROTEIN, SERUM 7.2 g/dL (6.0-8.3)
[2020-10-23] MEDS: INSULIN HUMULIN R 100 UNIT/ML 3ML SQ SCH ×4 (05:12→20:07)
[2020-10-23 08:14] VITALS: BP 133/84
[2020-10-23] MEDS: SOLU-MEDROL 40MG VIAL IVP SCH ×2 (09:22→20:27)
[2020-10-23] MEDS: BARICITINIB (EUA) 2 MG TABLET PO SCH (09:23)
[2020-10-23] MEDS: ZINC SULFATE 220 CAPSULE PO SCH (09:23)
[2020-10-23] MEDS: ASPIRIN 81 MG EC TAB PO SCH (09:23)
[2020-10-23] MEDS: PANTOPRAZOLE 40 MG TAB DR PO SCH (09:23)
[2020-10-23] MEDS: BUSPIRONE HCL 5 MG TABLET PO SCH ×2 (09:23→20:27)
[2020-10-23] MEDS: CLOPIDOGREL 75MG TAB PO SCH (09:23)
[2020-10-23] MEDS: LOSARTAN 50 MG TABLET PO SCH (09:24)
[2020-10-23] MEDS: METOPROLOL TARTRATE 25 MG TAB PO SCH ×2 (09:24→20:27)
[2020-10-23] MEDS: ENOXAPARIN SODIUM 60 MG/0.6 ML SQ SCH ×2 (09:25→20:29)
[2020-10-23] MEDS: ASCORBIC ACID 500 MG TAB PO SCH (09:25)
[2020-10-23 12:24] VITALS: BP 131/76
[2020-10-23 16:01] VITALS: BP 131/70
[2020-10-23 19:44] VITALS: BP 166/92
[2020-10-23 23:56] VITALS: BP 145/97
[2020-10-24] MEDS: ALBUTEROL INHALER 90MCG/INH IH SCH ×4 (01:30→20:00)
[2020-10-24 03:02] VITALS: BP 117/75
[2020-10-24 04:38] LABS: BASOPHILS % (AUTO) 0.2 % (0.0-5.0); EOSINOPHILS % (AUTO) 0.1 % (0.0-8.0); HEMATOCRIT 48.1 % (42-54); LYMPHOCYTES % (AUTO) 1.3 % (21.0-51.0); MEAN CORPUSCULAR HGB CONC 32.6 g/dL (32.0-36.0); MONOCYTES % (AUTO) 1.6 % (3.0-13.0); NEUTROPHILS % (AUTO) 93.9 % (40.0-77.0); PLATELET COUNT (AUTO) 250 K/uL (130-400); RED BLOOD CELL COUNT(AUTO) 5.23 MIL/uL (4.50-6.20); RED CELL DISTRIBUTION WIDTH 12.5 % (11.0-15.5)
[2020-10-24 04:56] LABS: ALBUMIN 2.3 g/dL (3.5-5.0); BILIRUBIN,TOTAL 0.9 mg/dL (0.2-1.0); CREATININE 1.3 mg/dL (0.5-1.5); POTASSIUM 5.3 mmol/L (3.5-5.1); TOTAL PROTEIN, SERUM 6.7 g/dL (6.0-8.3)
[2020-10-24] MEDS: INSULIN HUMULIN R 100 UNIT/ML 3ML SQ SCH ×4 (06:17→21:19)
[2020-10-24] MEDS: SOLU-MEDROL 40MG VIAL IVP SCH ×3 (07:24→19:54)
[2020-10-24] MEDS: ZINC SULFATE 220 CAPSULE PO SCH (07:25)
[2020-10-24] MEDS: ASCORBIC ACID 500 MG TAB PO SCH (07:25)
[2020-10-24] MEDS: ENOXAPARIN SODIUM 60 MG/0.6 ML SQ SCH ×2 (07:25→19:56)
[2020-10-24] MEDS: BUSPIRONE HCL 5 MG TABLET PO SCH ×2 (07:25→19:53)
[2020-10-24] MEDS: PANTOPRAZOLE 40 MG TAB DR PO SCH (07:25)
[2020-10-24] MEDS: METOPROLOL TARTRATE 25 MG TAB PO SCH ×2 (07:25→19:53)
[2020-10-24] MEDS: CLOPIDOGREL 75MG TAB PO SCH (07:26)
[2020-10-24] MEDS: BARICITINIB (EUA) 2 MG TABLET PO SCH (07:26)
[2020-10-24] MEDS: LOSARTAN 50 MG TABLET PO SCH (07:26)
[2020-10-24] MEDS: ASPIRIN 81 MG EC TAB PO SCH (07:26)
[2020-10-24 08:07] VITALS: BP 107/78
[2020-10-24] MEDS ORDERED: PHARMACY COMMUNICATION MISC SCH (09:00)
[2020-10-24] MEDS ORDERED: KAYEXALATE 15GM/60ML PO SCH (09:00)
[2020-10-24 12:00] VITALS: BP 125/79
[2020-10-24] MEDS ORDERED: COMPOUND IV REFRIGERATED 1 EACH IVSOLN MISC PRN (12:00)
[2020-10-24] MEDS: REMDESIVIR (EUA) 520 100 MG in 0.9% NACL 250ML 250 ML IV SCH (13:09)
[2020-10-24 15:57] VITALS: BP 131/83
[2020-10-24 20:22] VITALS: BP 119/78
[2020-10-25] VITALS: BP 127/74
[2020-10-25] MEDS: ALBUTEROL INHALER 90MCG/INH IH SCH ×4 (02:17→20:28)
[2020-10-25 03:27] VITALS: BP 130/78
[2020-10-25 05:04] LABS: BASOPHILS % (AUTO) 0.1 % (0.0-5.0); HEMATOCRIT 45.7 % (42-54); LYMPHOCYTES % (AUTO) 1.3 % (21.0-51.0); MEAN CORPUSCULAR HEMOGLOBIN 29.9 pg (27.0-33.0); MEAN CORPUSCULAR HGB CONC 32.8 g/dL (32.0-36.0); MONOCYTES % (AUTO) 3.6 % (3.0-13.0); NEUTROPHILS % (AUTO) 93.5 % (40.0-77.0); PLATELET COUNT (AUTO) 211 K/uL (130-400); RED BLOOD CELL COUNT(AUTO) 5.02 MIL/uL (4.50-6.20); RED CELL DISTRIBUTION WIDTH 12.4 % (11.0-15.5); WHITE BLOOD COUNT (AUTO) 19.3 K/uL (4.8-10.8)
[2020-10-25 05:34] LABS: ALBUMIN 2.2 g/dL (3.5-5.0); BILIRUBIN,TOTAL 0.8 mg/dL (0.2-1.0); CREATININE 1.1 mg/dL (0.5-1.5); CRP QUANTITATIVE 13.2 mg/L (0.00-9.0); MAGNESIUM 2.7 mg/dL (1.80-2.40); PHOSPHORUS 4.2 mg/dL (2.5-4.9); POTASSIUM 4.8 mmol/L (3.5-5.1); TOTAL PROTEIN, SERUM 6.6 g/dL (6.0-8.3)
[2020-10-25] MEDS: INSULIN HUMULIN R 100 UNIT/ML 3ML SQ SCH ×4 (05:53→21:00)
[2020-10-25] MEDS: REMDESIVIR LABS MISC SCH (06:33)
[2020-10-25 08:00] VITALS: BP 106/62
[2020-10-25] MEDS: BARICITINIB (EUA) 2 MG TABLET PO SCH (08:24)
[2020-10-25] MEDS: ASPIRIN 81 MG EC TAB PO SCH (08:25)
[2020-10-25] MEDS: ENOXAPARIN SODIUM 60 MG/0.6 ML SQ SCH (08:25)
[2020-10-25] MEDS: CLOPIDOGREL 75MG TAB PO SCH (08:25)
[2020-10-25] MEDS: SOLU-MEDROL 40MG VIAL IVP SCH ×3 (08:25→20:26)
[2020-10-25] MEDS: METOPROLOL TARTRATE 25 MG TAB PO SCH ×2 (08:26→20:26)
[2020-10-25] MEDS: ASCORBIC ACID 500 MG TAB PO SCH (08:26)
[2020-10-25] MEDS: ZINC SULFATE 220 CAPSULE PO SCH (08:26)
[2020-10-25] MEDS: PANTOPRAZOLE 40 MG TAB DR PO SCH (08:26)
[2020-10-25] MEDS: BUSPIRONE HCL 5 MG TABLET PO SCH ×2 (08:26→20:26)
[2020-10-25] MEDS: LOSARTAN 50 MG TABLET PO SCH (08:26)
[2020-10-25 08:27] LABS: BASOPHILS % (AUTO) 0.1 % (0.0-5.0); HEMATOCRIT 47.4 % (42-54); LYMPHOCYTES % (AUTO) 1.8 % (21.0-51.0); MEAN CORPUSCULAR HEMOGLOBIN 30.6 pg (27.0-33.0); MEAN CORPUSCULAR HGB CONC 32.7 g/dL (32.0-36.0); MEAN CORPUSCULAR VOLUME 93.7 fL (79-99); MONOCYTES % (AUTO) 3.8 % (3.0-13.0); NEUTROPHILS % (AUTO) 92.6 % (40.0-77.0); PLATELET COUNT (AUTO) 224 K/uL (130-400); RED BLOOD CELL COUNT(AUTO) 5.06 MIL/uL (4.50-6.20); RED CELL DISTRIBUTION WIDTH 12.5 % (11.0-15.5); WHITE BLOOD COUNT (AUTO) 21.1 K/uL (4.8-10.8)
[2020-10-25 08:49] LABS: ALBUMIN 2.3 g/dL (3.5-5.0); BILIRUBIN,TOTAL 0.8 mg/dL (0.2-1.0); CREATININE 1.1 mg/dL (0.5-1.5); POTASSIUM 4.4 mmol/L (3.5-5.1); TOTAL PROTEIN, SERUM 6.9 g/dL (6.0-8.3)
[2020-10-25 12:00] VITALS: BP 100/65
[2020-10-25] MEDS: REMDESIVIR (EUA) 520 100 MG in 0.9% NACL 250ML 250 ML IV SCH (12:38)
[2020-10-25 16:00] VITALS: BP 115/73
[2020-10-25] MEDS: FUROSEMIDE 20MG VIAL IV SCH (18:33)
[2020-10-25 19:40] VITALS: BP 116/91
[2020-10-25] MEDS: ENOXAPARIN SODIUM 40 MG/0.4 ML SYRINGE SQ SCH (20:27)
[2020-10-26] VITALS (7 sets, daily range): BP systolic 96–133; BP diastolic 61–96
[2020-10-26 04:40] LABS: BASOPHILS % (AUTO) 0.2 % (0.0-5.0); LYMPHOCYTES % (AUTO) 1.4 % (21.0-51.0); MEAN CORPUSCULAR HEMOGLOBIN 30.1 pg (27.0-33.0); MEAN CORPUSCULAR HGB CONC 32.7 g/dL (32.0-36.0); MONOCYTES % (AUTO) 4.2 % (3.0-13.0); PLATELET COUNT (AUTO) 211 K/uL (130-400); RED BLOOD CELL COUNT(AUTO) 5.22 MIL/uL (4.50-6.20); RED CELL DISTRIBUTION WIDTH 12.4 % (11.0-15.5)
[2020-10-26 05:09] LABS: ALBUMIN 2.3 g/dL (3.5-5.0); BILIRUBIN,TOTAL 0.8 mg/dL (0.2-1.0); CREATININE 1.2 mg/dL (0.5-1.5); CRP QUANTITATIVE 10.5 mg/L (0.00-9.0); MAGNESIUM 2.6 mg/dL (1.80-2.40); POTASSIUM 4.5 mmol/L (3.5-5.1); TOTAL PROTEIN, SERUM 6.8 g/dL (6.0-8.3)
[2020-10-26] MEDS: INSULIN HUMULIN R 100 UNIT/ML 3ML SQ SCH ×4 (05:22→19:55)
[2020-10-26] MEDS: REMDESIVIR LABS MISC SCH (06:00)
[2020-10-26] MEDS: SOLU-MEDROL 40MG VIAL IVP SCH ×3 (06:10→19:48)
[2020-10-26] MEDS: ALBUTEROL INHALER 90MCG/INH IH SCH ×3 (06:11→19:56)
[2020-10-26] MEDS: BARICITINIB (EUA) 2 MG TABLET PO SCH (08:18)
[2020-10-26] MEDS: FUROSEMIDE 20MG VIAL IV SCH (08:19)
[2020-10-26] MEDS: ENOXAPARIN SODIUM 40 MG/0.4 ML SYRINGE SQ SCH ×2 (08:19→19:50)
[2020-10-26] MEDS: LOSARTAN 50 MG TABLET PO SCH (08:20)
[2020-10-26] MEDS: CLOPIDOGREL 75MG TAB PO SCH (08:20)
[2020-10-26] MEDS: PANTOPRAZOLE 40 MG TAB DR PO SCH (08:21)
[2020-10-26] MEDS: METOPROLOL TARTRATE 25 MG TAB PO SCH ×2 (08:21→19:48)
[2020-10-26] MEDS: BUSPIRONE HCL 5 MG TABLET PO SCH ×2 (08:21→19:48)
[2020-10-26] MEDS: ZINC SULFATE 220 CAPSULE PO SCH (08:21)
[2020-10-26] MEDS: ASCORBIC ACID 500 MG TAB PO SCH (08:21)
[2020-10-26] MEDS: ASPIRIN 81 MG EC TAB PO SCH (08:21)
[2020-10-26] MEDS: REMDESIVIR (EUA) 520 100 MG in 0.9% NACL 250ML 250 ML IV SCH (13:23)
[2020-10-27] MEDS: ALBUTEROL INHALER 90MCG/INH IH SCH ×4 (01:30→19:31)
[2020-10-27 04:04] VITALS: BP 124/79
[2020-10-27 04:13] LABS: BASOPHILS % (AUTO) 0.2 % (0.0-5.0); HEMATOCRIT 45.2 % (42-54); LYMPHOCYTES % (AUTO) 1.7 % (21.0-51.0); MEAN CORPUSCULAR HEMOGLOBIN 30.2 pg (27.0-33.0); MEAN CORPUSCULAR HGB CONC 33.2 g/dL (32.0-36.0); MEAN CORPUSCULAR VOLUME 91.1 fL (79-99); MONOCYTES % (AUTO) 3.7 % (3.0-13.0); NEUTROPHILS % (AUTO) 93.1 % (40.0-77.0); PLATELET COUNT (AUTO) 186 K/uL (130-400); RED BLOOD CELL COUNT(AUTO) 4.96 MIL/uL (4.50-6.20); RED CELL DISTRIBUTION WIDTH 12.5 % (11.0-15.5); WHITE BLOOD COUNT (AUTO) 22.9 K/uL (4.8-10.8)
[2020-10-27 04:29] LABS: ALBUMIN 2.3 g/dL (3.5-5.0); BILIRUBIN,TOTAL 0.8 mg/dL (0.2-1.0); CREATININE 1.3 mg/dL (0.5-1.5); CRP QUANTITATIVE 21.6 mg/L (0.00-9.0); MAGNESIUM 2.7 mg/dL (1.80-2.40); POTASSIUM 4.6 mmol/L (3.5-5.1); TOTAL PROTEIN, SERUM 6.6 g/dL (6.0-8.3)
[2020-10-27] MEDS: REMDESIVIR LABS MISC SCH (05:00)
[2020-10-27] MEDS: SOLU-MEDROL 40MG VIAL IVP SCH ×4 (05:52→23:50)
[2020-10-27] MEDS: INSULIN HUMULIN R 100 UNIT/ML 3ML SQ SCH ×4 (05:53→20:48)
[2020-10-27 08:30] VITALS: BP 122/84
[2020-10-27] MEDS: FUROSEMIDE 20MG VIAL IV SCH (09:59)
[2020-10-27] MEDS: ENOXAPARIN SODIUM 40 MG/0.4 ML SYRINGE SQ SCH ×2 (10:00→20:45)
[2020-10-27] MEDS: ASCORBIC ACID 500 MG TAB PO SCH (10:00)
[2020-10-27] MEDS: ZINC SULFATE 220 CAPSULE PO SCH (10:01)
[2020-10-27] MEDS: LOSARTAN 50 MG TABLET PO SCH (10:01)
[2020-10-27] MEDS: BARICITINIB (EUA) 2 MG TABLET PO SCH (10:01)
[2020-10-27] MEDS: CLOPIDOGREL 75MG TAB PO SCH (10:01)
[2020-10-27] MEDS: BUSPIRONE HCL 5 MG TABLET PO SCH ×2 (10:01→20:44)
[2020-10-27] MEDS: ASPIRIN 81 MG EC TAB PO SCH (10:01)
[2020-10-27] MEDS: PANTOPRAZOLE 40 MG TAB DR PO SCH (10:01)
[2020-10-27] MEDS: METOPROLOL TARTRATE 25 MG TAB PO SCH ×2 (10:01→20:45)
[2020-10-27 12:50] VITALS: BP 134/81
[2020-10-27] MEDS: REMDESIVIR (EUA) 520 100 MG in 0.9% NACL 250ML 250 ML IV SCH (13:05)
[2020-10-27 16:47] VITALS: BP 97/56
[2020-10-27 19:39] VITALS: BP 120/65
[2020-10-27 23:07] VITALS: BP 135/81
[2020-10-28] MEDS: ALBUTEROL INHALER 90MCG/INH IH SCH ×4 (01:09→19:14)
[2020-10-28 03:54] VITALS: BP 104/68
[2020-10-28] MEDS ORDERED: 0.9% NACL 500ML IV.SOLN 500 ML IV ONE (04:13)
[2020-10-28 04:48] LABS: BASOPHILS % (AUTO) 0.2 % (0.0-5.0); EOSINOPHILS % (AUTO) 0.4 % (0.0-8.0); HEMATOCRIT 43.4 % (42-54); LYMPHOCYTES % (AUTO) 1.1 % (21.0-51.0); MEAN CORPUSCULAR HEMOGLOBIN 30.2 pg (27.0-33.0); MEAN CORPUSCULAR HGB CONC 33.4 g/dL (32.0-36.0); MEAN CORPUSCULAR VOLUME 90.4 fL (79-99); MONOCYTES % (AUTO) 3.5 % (3.0-13.0); NEUTROPHILS % (AUTO) 92.6 % (40.0-77.0); PLATELET COUNT (AUTO) 137 K/uL (130-400); RED CELL DISTRIBUTION WIDTH 12.4 % (11.0-15.5); WHITE BLOOD COUNT (AUTO) 26.9 K/uL (4.8-10.8)
[2020-10-28 05:13] LABS: ALBUMIN 2.2 g/dL (3.5-5.0); BILIRUBIN,TOTAL 0.9 mg/dL (0.2-1.0); CREATININE 1.2 mg/dL (0.5-1.5); CRP QUANTITATIVE 51.5 mg/L (0.00-9.0); POTASSIUM 4.6 mmol/L (3.5-5.1); TOTAL PROTEIN, SERUM 6.5 g/dL (6.0-8.3)
[2020-10-28] MEDS: REMDESIVIR LABS MISC SCH (05:18)
[2020-10-28] MEDS: SOLU-MEDROL 40MG VIAL IVP SCH ×3 (05:27→20:35)
[2020-10-28] MEDS: INSULIN HUMULIN R 100 UNIT/ML 3ML SQ SCH ×4 (06:01→20:38)
[2020-10-28 07:59] VITALS: BP 122/92
[2020-10-28] MEDS: ENOXAPARIN SODIUM 40 MG/0.4 ML SYRINGE SQ SCH ×2 (08:37→20:39)
[2020-10-28] MEDS: FUROSEMIDE 20MG VIAL IV SCH (08:37)
[2020-10-28] MEDS: ASCORBIC ACID 500 MG TAB PO SCH (08:37)
[2020-10-28] MEDS: ASPIRIN 81 MG EC TAB PO SCH (08:37)
[2020-10-28] MEDS: LOSARTAN 50 MG TABLET PO SCH (08:37)
[2020-10-28] MEDS: CLOPIDOGREL 75MG TAB PO SCH (08:37)
[2020-10-28] MEDS: PANTOPRAZOLE 40 MG TAB DR PO SCH (08:37)
[2020-10-28] MEDS: METOPROLOL TARTRATE 25 MG TAB PO SCH ×2 (08:38→20:36)
[2020-10-28] MEDS: BUSPIRONE HCL 5 MG TABLET PO SCH ×2 (08:38→20:36)
[2020-10-28] MEDS: ZINC SULFATE 220 CAPSULE PO SCH (08:38)
[2020-10-28 11:30] VITALS: BP 114/83
[2020-10-28] MEDS: REMDESIVIR (EUA) 520 100 MG in 0.9% NACL 250ML 250 ML IV SCH (13:22)
[2020-10-28 15:46] VITALS: BP 132/81
[2020-10-28 19:44] VITALS: BP 97/66
[2020-10-28 23:14] VITALS: BP 109/69
[2020-10-29] MEDS: ALBUTEROL INHALER 90MCG/INH IH SCH ×4 (01:05→19:08)
[2020-10-29 03:14] VITALS: BP 114/77
[2020-10-29 04:46] LABS: BASOPHILS % (AUTO) 0.1 % (0.0-5.0); HEMATOCRIT 41.9 % (42-54); LYMPHOCYTES % (AUTO) 1.3 % (21.0-51.0); MEAN CORPUSCULAR HEMOGLOBIN 30.5 pg (27.0-33.0); MEAN CORPUSCULAR HGB CONC 33.9 g/dL (32.0-36.0); MEAN CORPUSCULAR VOLUME 90.1 fL (79-99); MONOCYTES % (AUTO) 3.9 % (3.0-13.0); NEUTROPHILS % (AUTO) 93.5 % (40.0-77.0); PLATELET COUNT (AUTO) 128 K/uL (130-400); RED BLOOD CELL COUNT(AUTO) 4.65 MIL/uL (4.50-6.20); RED CELL DISTRIBUTION WIDTH 12.7 % (11.0-15.5); WHITE BLOOD COUNT (AUTO) 24.6 K/uL (4.8-10.8)
[2020-10-29] MEDS: SOLU-MEDROL 40MG VIAL IVP SCH ×2 (05:00→17:06)
[2020-10-29 05:06] LABS: ALBUMIN 2.1 g/dL (3.5-5.0); BILIRUBIN,TOTAL 0.8 mg/dL (0.2-1.0); CREATININE 1.2 mg/dL (0.5-1.5); CRP QUANTITATIVE 43.2 mg/L (0.00-9.0); MAGNESIUM 2.7 mg/dL (1.80-2.40); POTASSIUM 4.7 mmol/L (3.5-5.1); TOTAL PROTEIN, SERUM 6.3 g/dL (6.0-8.3)
[2020-10-29] MEDS: INSULIN HUMULIN R 100 UNIT/ML 3ML SQ SCH ×4 (05:50→21:51)
[2020-10-29 07:45] VITALS: BP 120/81
[2020-10-29] MEDS: FUROSEMIDE 20MG VIAL IV SCH (08:21)
[2020-10-29] MEDS: CLOPIDOGREL 75MG TAB PO SCH (08:21)
[2020-10-29] MEDS: ENOXAPARIN SODIUM 40 MG/0.4 ML SYRINGE SQ SCH ×2 (08:21→21:47)
[2020-10-29] MEDS: ASCORBIC ACID 500 MG TAB PO SCH (08:21)
[2020-10-29] MEDS: ASPIRIN 81 MG EC TAB PO SCH (08:22)
[2020-10-29] MEDS: LOSARTAN 50 MG TABLET PO SCH (08:22)
[2020-10-29] MEDS: BUSPIRONE HCL 5 MG TABLET PO SCH ×2 (08:22→21:47)
[2020-10-29] MEDS: METOPROLOL TARTRATE 25 MG TAB PO SCH ×2 (08:22→21:47)
[2020-10-29] MEDS: ZINC SULFATE 220 CAPSULE PO SCH (08:22)
[2020-10-29] MEDS: PANTOPRAZOLE 40 MG TAB DR PO SCH (08:22)
[2020-10-29] MEDS ORDERED: SOLU-MEDROL 40MG VIAL IVP SCH (11:30)
[2020-10-29 11:49] VITALS: BP 106/68
[2020-10-29 16:18] VITALS: BP 85/59
[2020-10-29] MEDS ORDERED: BUDESONIDE 0.5 MG/2 ML INH IH SCH (18:00)
[2020-10-29 19:45] VITALS: BP 96/67
[2020-10-29 23:16] VITALS: BP 99/66
[2020-10-30] VITALS (9 sets, daily range): BP systolic 73–183; BP diastolic 31–118
[2020-10-30] MEDS: ALBUTEROL INHALER 90MCG/INH IH SCH ×2 (00:38→06:25)
[2020-10-30] MEDS: SOLU-MEDROL 40MG VIAL IVP SCH ×2 (05:02→17:39)
[2020-10-30 05:03] LABS: BASOPHILS % (AUTO) 0.2 % (0.0-5.0); HEMATOCRIT 41.7 % (42-54); LYMPHOCYTES % (AUTO) 1.8 % (21.0-51.0); MEAN CORPUSCULAR HEMOGLOBIN 30.2 pg (27.0-33.0); MEAN CORPUSCULAR HGB CONC 33.6 g/dL (32.0-36.0); MEAN CORPUSCULAR VOLUME 90.1 fL (79-99); MONOCYTES % (AUTO) 4.9 % (3.0-13.0); NEUTROPHILS % (AUTO) 91.5 % (40.0-77.0); PLATELET COUNT (AUTO) 118 K/uL (130-400); RED BLOOD CELL COUNT(AUTO) 4.63 MIL/uL (4.50-6.20); RED CELL DISTRIBUTION WIDTH 12.7 % (11.0-15.5)
[2020-10-30 05:31] LABS: ALBUMIN 2.2 g/dL (3.5-5.0); BILIRUBIN,TOTAL 0.8 mg/dL (0.2-1.0); CREATININE 1.7 mg/dL (0.5-1.5); CRP QUANTITATIVE 37.9 mg/L (0.00-9.0); POTASSIUM 4.3 mmol/L (3.5-5.1); TOTAL PROTEIN, SERUM 6.2 g/dL (6.0-8.3)
[2020-10-30] MEDS: INSULIN HUMULIN R 100 UNIT/ML 3ML SQ SCH ×2 (06:26→11:30)
[2020-10-30] MEDS ORDERED: LACTATED RINGERS 1000ML 1,000 ML IV SCH ×2 (07:30→09:00)
[2020-10-30] MEDS ORDERED: LOSARTAN 25 MG TABLET PO SCH (09:00)
[2020-10-30] MEDS: CLOPIDOGREL 75MG TAB PO SCH (09:00)
[2020-10-30] MEDS ORDERED: FONDAPARINUX SODIUM 7.5 MG/0.6 ML SQ SCH (09:00)
[2020-10-30] MEDS ORDERED: FONDAPARINUX SODIUM 2.5 MG/0.5 ML SQ SCH (09:00)
[2020-10-30] MEDS: METOPROLOL TARTRATE 25 MG TAB PO SCH (09:00)
[2020-10-30] MEDS: PANTOPRAZOLE 40 MG TAB DR PO SCH (09:00)
[2020-10-30] MEDS: ZINC SULFATE 220 CAPSULE PO SCH (09:00)
[2020-10-30] MEDS: ASCORBIC ACID 500 MG TAB PO SCH (09:00)
[2020-10-30] MEDS: BUSPIRONE HCL 5 MG TABLET PO SCH (09:00)
[2020-10-30] MEDS ORDERED: ENOXAPARIN SODIUM 60 MG/0.6 ML SQ SCH (09:00)
[2020-10-30] MEDS ORDERED: MORPHINE 2 MG SYG IVP PRN (11:30)
[2020-10-30] MEDS: MORPHINE 2 MG SYG IVP SCH ×3 (11:51→17:39)
[2020-10-30] MEDS ORDERED: PROPOFOL 1000 MG/100 ML 100 ML IV ONE (15:16)
[2020-10-30] MEDS ORDERED: FENTANYL 2500MCG+NS 250ML 250 ML IV ONE (15:17)
[2020-10-30] MEDS ORDERED: PROPOFOL 1000 MG/100 ML 100 ML IV SCH (15:30)
[2020-10-30] MEDS ORDERED: FENTANYL CITRATE PF 0.05 MG/ML 1,000 MCG in 0.9%NACL 100ML 100 ML IVPB SCH (15:30)
[2020-10-30] MEDS ORDERED: NOREPINEPHRINE 4MG/NS 250ML 0 ML IV ONE (15:52)
[2020-10-30] MEDS ORDERED: PHARMACY COMMUNICATION MISC SCH ×2 (16:00)
[2020-10-30] MEDS ORDERED: PHENYLEPHRINE HCL 10 MG in 0.9% NACL 250ML 250 ML IV PRN (16:00)
[2020-10-30] MEDS ORDERED: MIDAZOLAM 100MG-0.9% NS 100ML 100 ML IV SCH (16:00)
[2020-10-30] MEDS ORDERED: FENTANYL 2500MCG+NS 250ML 250 ML IV SCH (16:00)
[2020-10-30] MEDS ORDERED: SODIUM BICARB 50MEQ 50ML VIAL 100 ML ONE (16:08)
== END 2020-10-30 16:52 | DRG 871 ==
LOC: EDH 18:44 → EDHIP 20:45 → 4AH 10-14 11:07 → 2AH 10-23 15:56 → 2BH 10-30 15:46
PROVIDERS: ADMIT Internal Medicine; ATTEND Internal Medicine
PROC: XW033E5 Introduction of Remdesivir Anti-infective into Peripheral Vein, Percutaneous Approach, New Technology Group 5 (ICD-10-PCS; 2020-10-14)
PROC: XW0DXM6 Introduction of Baricitinib into Mouth and Pharynx, External Approach, New Technology Group 6 (ICD-10-PCS; 2020-10-14)
PROC: 5A0935A Assistance with Respiratory Ventilation, Less than 24 Consecutive Hours, High Flow/Velocity Cannula (ICD-10-PCS; 2020-10-16)
PROC: 5A0935A Assistance with Respiratory Ventilation, Less than 24 Consecutive Hours, High Flow/Velocity Cannula (ICD-10-PCS; 2020-10-17)
PROC: 5A0935A Assistance with Respiratory Ventilation, Less than 24 Consecutive Hours, High Flow/Velocity Cannula (ICD-10-PCS; 2020-10-18)
PROC: 5A0935A Assistance with Respiratory Ventilation, Less than 24 Consecutive Hours, High Flow/Velocity Cannula (ICD-10-PCS; 2020-10-19)
PROC: 5A0935A Assistance with Respiratory Ventilation, Less than 24 Consecutive Hours, High Flow/Velocity Cannula (ICD-10-PCS; 2020-10-21)
PROC: 5A0935A Assistance with Respiratory Ventilation, Less than 24 Consecutive Hours, High Flow/Velocity Cannula (ICD-10-PCS; 2020-10-22)
PROC: 5A0935A Assistance with Respiratory Ventilation, Less than 24 Consecutive Hours, High Flow/Velocity Cannula (ICD-10-PCS; 2020-10-23)
PROC: 5A0935A Assistance with Respiratory Ventilation, Less than 24 Consecutive Hours, High Flow/Velocity Cannula (ICD-10-PCS; 2020-10-24)
PROC: 5A0935A Assistance with Respiratory Ventilation, Less than 24 Consecutive Hours, High Flow/Velocity Cannula (ICD-10-PCS; 2020-10-25)
PROC: 5A09357 Assistance with Respiratory Ventilation, Less than 24 Consecutive Hours, Continuous Positive Airway Pressure (ICD-10-PCS; 2020-10-26)
PROC: 5A0935A Assistance with Respiratory Ventilation, Less than 24 Consecutive Hours, High Flow/Velocity Cannula (ICD-10-PCS; 2020-10-26)
PROC: 5A09357 Assistance with Respiratory Ventilation, Less than 24 Consecutive Hours, Continuous Positive Airway Pressure (ICD-10-PCS; 2020-10-27)
PROC: 5A0935A Assistance with Respiratory Ventilation, Less than 24 Consecutive Hours, High Flow/Velocity Cannula (ICD-10-PCS; 2020-10-27)
PROC: 5A09357 Assistance with Respiratory Ventilation, Less than 24 Consecutive Hours, Continuous Positive Airway Pressure (ICD-10-PCS; 2020-10-28)
PROC: 5A0935A Assistance with Respiratory Ventilation, Less than 24 Consecutive Hours, High Flow/Velocity Cannula (ICD-10-PCS; 2020-10-28)
PROC: 5A09357 Assistance with Respiratory Ventilation, Less than 24 Consecutive Hours, Continuous Positive Airway Pressure (ICD-10-PCS; 2020-10-29)
PROC: 5A0935A Assistance with Respiratory Ventilation, Less than 24 Consecutive Hours, High Flow/Velocity Cannula (ICD-10-PCS; 2020-10-29)
PROC: 5A12012 Performance of Cardiac Output, Single, Manual (ICD-10-PCS; principal; 2020-10-30)
PROC: 5A09357 Assistance with Respiratory Ventilation, Less than 24 Consecutive Hours, Continuous Positive Airway Pressure (ICD-10-PCS; 2020-10-30)
PROC: 5A0935A Assistance with Respiratory Ventilation, Less than 24 Consecutive Hours, High Flow/Velocity Cannula (ICD-10-PCS; 2020-10-30)
DX: A41.89 Other specified sepsis (principal); U07.1 COVID-19; J12.82 Pneumonia due to coronavirus disease 2019; J80 Acute respiratory distress syndrome; E44.0 Moderate protein-calorie malnutrition; M62.82 Rhabdomyolysis; E87.1 Hypo-osmolality and hyponatremia; N17.9 Acute kidney failure, unspecified; D68.69 Other thrombophilia; E11.65 Type 2 diabetes mellitus with hyperglycemia; E66.9 Obesity, unspecified; D69.6 Thrombocytopenia, unspecified; I46.9 Cardiac arrest, cause unspecified; E87.5 Hyperkalemia; R77.8 Other specified abnormalities of plasma proteins; I25.10 Atherosclerotic heart disease of native coronary artery without angina pectoris; E78.5 Hyperlipidemia, unspecified; B97.89 Other viral agents as the cause of diseases classified elsewhere; I49.3 Ventricular premature depolarization; N18.9 Chronic kidney disease, unspecified; E11.22 Type 2 diabetes mellitus with diabetic chronic kidney disease; Z68.38 Body mass index [BMI] 38.0-38.9, adult; I12.9 Hypertensive chronic kidney disease with stage 1 through stage 4 chronic kidney disease, or unspecified chronic kidney disease; Z95.1 Presence of aortocoronary bypass graft; Z91.19 Patient's noncompliance with other medical treatment and regimen; Z79.01 Long term (current) use of anticoagulants
CPT/HCPCS: 31500; 36415; 36600; 71045; 80048; 80053; 82550; 82803; 82948; 83036; 83605; 83615; 83735; 83874; 83880; 84100; 84145; 84484; 85025; 85378; 86022; 86140; 87040; 87635; 87804; 92950; 93005; 93970; 94002; 94660; 94770; C9803; G0378; J0171; J0282; J1100; J1650; J1652; J1815; J1940; J2001; J2543; J2704; J2920; J3010; J3475; J3490; J7040; J7050; J7120